=== PATIENT | female | born 1990 | race Caucasian/White ===

== ENCOUNTER 2017-03-28 22:20 | Emergency (ER) | payer OTHER ==
[~2017-03-28] VITALS: Ht 185.4 cm; Wt 86.3 kg
[2017-03-28 22:26] VITALS: Ht 185.4 cm; Wt 86.3 kg
[2017-03-28] MEDS ORDERED: SULF1TAB31 PO (22:34)
[2017-03-28] MEDS ORDERED: CEPH-443 PO (22:34)
[2017-03-28] MEDS ORDERED: BEN50 PO (22:35)
--- NOTE | 2017-03-28 22:39 | ERD ---
ER Documentation Chief Complaint Date/Time DATE: 03/28/17 TIME: 22:36 Chief Complaint ABSCESS TO R HIP TODAY, RED/RAISED/HARD/HOT CENTER HPI This is a 26-year-old female presenting to the emergency department complaining of erythematous painful region on her right lateral flank/hip that she noticed 2 days ago and worsened today. Patient states the pain is 5 out of 10. She states [place] the [place] she is not sure feeling that her or not. She is states it started off itchy but now it is throbbing. Patient denies any medications. Denies any fevers. ROS All systems reviewed and are negative except as per history of present illness. Medications Home Meds Active Scripts Diphenhydramine Hcl* (Benadryl*) 50 Mg Cap, 50 MG PO Q6H Y for ITCHING/RASH, # 30 CAP Prov:MICAH MARTINS PA-C 03/28/17 Sulfamethoxazole/Trimethoprim* (Bactrim Ds* Tablet) 1 Each Tablet, 1 TAB PO BID for 7 Days, TAB Prov:MICAH MARTINS PA-C 03/28/17 Cephalexin* (Keflex*) 500 Mg Capsule, 500 MG PO QID for 7 Days, CAP Prov:MICAH MARTINS PA-C 03/28/17 PMhx/Soc Medical and Surgical Hx: pt denies Medical Hx, pt denies Surgical Hx Hx Alcohol Use: No Hx Substance Use: No Hx Tobacco Use: No Smoking Status: Never smoker Physical Exam Vitals Vital Signs Date Time Temp Pulse Resp B/P Pulse Ox O2 Delivery O2 Flow Rate FiO2 03/28/17 22:26 98.3 78 16 128/80 97 Physical Exam General: WD/WN, in no apparent distress, non-toxic appearing HENT: NC/AT Eyes: Conjunctiva normal Neck: Supple Pulm: Clear to auscultation, normal labored breathing; no wheezing/rales/ rhonchi heard CV: Good capillary refill GI: Non-distended, no guarding Back: No masses Ext: No clubbing, cyanosis, or edema Neuro: Moves on all fours Skin: ~6cm x 5cm erythematous patch that is slightly indurated in the middle and warm, no fluctuant papule with drainage identified Normal turgor, color, and temperature. No ulcerations or rashes noted. Psych: Normal mood Procedures/MDM This is a 26-year-old female presenting to the emergency department with erythematous patch on her right hip which is likely cellulitis, other differentials include but not limited to an allergic reaction. There was no evidence of lymphangitis or necrotizing fasciitis. Patient is suitable to follow-up at her clinic in 2 days or return to this facility for wound check. Discussed return sooner if her condition worsens. Prescription for Keflex and Bactrim was provided. She stable for discharge, she understands and agrees with plan Departure Diagnosis: Primary Impression: Cellulitis Condition: Stable Patient Instructions: Cellulitis Additional Instructions: Follow up in 2 days in your clinic for wound check. Take all medicines as directed. Return to this facility if you are not improving as expected. You have been given a medicine which may cause drowsiness.DO NOT DRIVE OR OPERATE DANGEROUS MACHINERY while taking this medicine! MICAH MARTINS PA-C Mar 28, 2017 22:39
== END 2017-03-28 22:50 | disposition home or self-care (01) ==
LOC: FTE 22:20
DX: L03.115 Cellulitis of right lower limb (principal)
CPT/HCPCS: 99284